=== PATIENT | male | born 1975 | race Hispanic/Latino ===

== ENCOUNTER → 2023-05-08 | Emergency (ER) | payer OTHER ==
[~2023-05-08] VITALS: Ht 175.3 cm; Wt 117.9 kg
[2023-05-08 16:45] VITALS: BP 157/81; PULSE 111; RESP 20
[2023-05-08 17:35] LABS: INFLUENZA TYPE A Negative For Type A (NEGATIVE); INFLUENZA TYPE B Negative For Type B (NEGATIVE)
[2023-05-08 17:48] LABS: SARS-CoV-2, RNA, NAAT POSITIVE SARS CoV-2 (NEGATIVE)
== END ==
LOC: EDH 16:43
DX: R42 Dizziness and giddiness (principal); Z20.822 Contact with and (suspected) exposure to COVID-19; Z53.21 Procedure and treatment not carried out due to patient leaving prior to being seen by health care provider
CPT/HCPCS: 99281; 87635; 84484; 87804 ×2; 93005; C9803